=== PATIENT | male | born 1980 | race American Indian/Alaskan Native ===

== ENCOUNTER 2023-02-09 12:22 | Emergency (ER) | payer MEDICAID ==
[2023-02-09] MEDS ORDERED: Ketorolac 30 MG/ML SDV IM ONE (12:40)
[2023-02-09] MEDS ORDERED: Lidocaine 2% Viscous Solution 15 ML UD PO ONE (12:40)
[2023-02-09] MEDS ORDERED: Amoxicillin/Clavulanate K 875-125 MG Tab PO STA (13:48)
== END 2023-02-09 14:00 | disposition home or self-care (01) ==
LOC: FB.ED 12:22
DX: K04.7 Periapical abscess without sinus (principal); K02.9 Dental caries, unspecified; E10.9 Type 1 diabetes mellitus without complications
CPT/HCPCS: 96372; 99282; A9270; J1885

== ENCOUNTER 2023-05-04 09:43 | Emergency (ER) | payer MEDICAID ==
[2023-05-04] MEDS ORDERED: Ondansetron 4 MG/2 ML SDV IVPUSH ONE (09:58)
[2023-05-04] MEDS ORDERED: Sodium Chloride 0.9% 1,000 ML IV SCH (10:00)
[2023-05-04 10:17] LABS: HEMATOCRIT 47.9 % (38.3-50.1); HEMOGLOBIN 16.5 g/dL (12.9-17.7); MEAN CORPUSCULAR HEMOGLOBIN 30.9 pg (27.0-33.3); MEAN CORPUSCULAR HGB CONC 34.6 g/dL (28.7-35.3); MEAN CORPUSCULAR VOLUME 89.5 fL (80.8-98.7); MEAN PLATELET VOLUME 8.5 fL (6.7-11.0); PLATELET COUNT,PLT 262 x10(3)uL (117-477); RED BLOOD CELL COUNT 5.34 x10(6)uL (3.90-5.90); RED CELL DISTRIBUTION WIDTH 11.8 % (12.4-15.0)
[2023-05-04 10:18] LABS: BLOOD UREA NITROGEN,BUN 15 mg/dL (7-18); BUN/CREATININE RATIO 13.6 (9-20); CALCIUM 9.4 mg/dL (8.6-10.2); CARBON DIOXIDE,CO2 31 mmol/L (21-32); CHLORIDE,CL 101 mmol/L (100-110); CREATININE 1.1 mg/dL (0.70-1.30); ESTIMATED GFR 85 mL/min (>60); GLUCOSE RANDOM 208 mg/dL (80-116); POTASSIUM,K 3.8 mmol/L (3.5-5.3); SODIUM,NA 139 mmol/L (135-145)
[2023-05-04] MEDS ORDERED: Sodium Chloride 0.9% 10 ML Syringe FLUSH PRN (10:21)
[2023-05-04] MEDS ORDERED: Ketorolac 30 MG/ML SDV IVPUSH ONE (10:22)
[2023-05-04 10:27] LABS: BAND PERCENT MAN 1 % (0-6); LYMPHOCYTES PERCENT MAN 7 % (13-37); MONOCYTES PERCENT MAN 4 % (4-12); SEG NEUTROPHILS PERCENT MAN 88 % (46-82)
[2023-05-04 10:48] LABS: INFLUENZA A NAA NEGATIVE (NEGATIVE); INFLUENZA B NAA NEGATIVE (NEGATIVE); RESPIRATORY SYNCYTIAL VIR NAA NEGATIVE (NEGATIVE)
[2023-05-04 10:51] LABS: CORONAVIRUS COVID-19 NAA NEGATIVE (NEGATIVE)
== END 2023-05-04 12:02 | disposition home or self-care (01) ==
LOC: FB.ED 09:43
DX: K52.9 Noninfective gastroenteritis and colitis, unspecified (principal); J20.9 Acute bronchitis, unspecified; E11.9 Type 2 diabetes mellitus without complications; Z20.822 Contact with and (suspected) exposure to COVID-19
CPT/HCPCS: 0241U; 36415; 71045; 80048; 85025; 87651-QW; 96361; 96374; 96375; 99284-25; J1885; J2405; J3490; J7030